=== PATIENT | male | born 1960 | race Caucasian/White ===

== ENCOUNTER 2018-07-20 10:27 | Emergency (ER) | payer MEDICAID ==
--- NOTE | 2018-07-20 11:01 | EDPHY ---
General Time Seen by Provider: 07/20/18 11:00 Narrative: CLINICAL IMPRESSION: Medication refill ASSESSMENT/PLAN: Patient is a 57-year-old male with a significant history of coronary artery disease, diabetes, hypertension, COPD and asthma recently relocated to [place] from [place] requesting his anti-platelet medication refill. Patient is afebrile, not toxic appearing and in no acute distress. His vital signs were reviewed and were within normal limits. He has no physical complaints in the emergency department. He has been unable to establish care with a primary care provider and cover marker since his relocation, he realized this morning that he only has 2 pills left of his prasugrel and became concerned as he does not want to miss a dose. Patient was given a referral for both primary care provider and Cardiology to establish care with, he understands the importance of doing so in a timely manner. We also discussed the importance of smoking cessation as he is still continuing to smoke. He was given a 30 day prescription for his prasugrel, he had no physical complaints to warrant additional workup in the emergency department today. Conservative return precautions discussed-patient will return for development of chest pain, shortness of breath, abdominal pain or for any other concerning symptom. Patient verbalizes understanding and he is in agreement with this plan. CHIEF COMPLAINT: Medication refill HPI: Patient is a 57-year-old male with a significant history of coronary artery disease, diabetes, hypertension, COPD and asthma recently relocated to [place] from [place] requesting anti-platelet medication refill. Patient reports this morning he realized he only had 2 pills left of his prasugrel and became concerned as he does not want to miss a dose. Patient has been in the area for the last several months, has not yet established care with either a primary care provider or Cardiology. Patient denies any physical complaints in the emergency department today, he specifically denies any chest pain, shortness of breath, headache, dizziness, weakness or abdominal pain. He is medically compliant with all of his medication, denies need for any additional medication refills today. PAST MEDICAL HISTORY: Coronary artery disease, diabetes mellitus, hypertension , COPD, asthma Family History: Not contributory Social History: Current everyday smoker, denies alcohol or illicit drug use ROS: A full 10 point review of systems was negative except for those mentioned in HPI. PHYSICAL EXAM: General Appearance: Alert, oriented, appropriate, cooperative, NAD, well hydrated, non-toxic appearing, VSS, no hypoxia. HENT: Normocephalic, atraumatic. External ears appear normal. Nares are clear , mucosa is pink. Oropharynx clear is no erythema or exudates, no tonsillar hypertrophy or asymmetry. Eyes: PERRLA, no acute vision change, nystagmus, swelling, discharge, pain or photosensitivity. Conjunctiva pink, no pallor or injection. Neck: Supple, nontender, no lymphadenopathy, no midline pain, FROM, no meningismus. Respiratory: There are no retractions, lungs are clear to auscultation. Cardiac: Regular rate and rhythm, no murmurs or gallops. Gastrointestinal: Abdomen is soft, nontender, bowel sounds normal, no masses/ hernia, no rigidity, guarding or focal peritoneal findings. Skin: Warm, dry, no rashes, no nodules on palpation. No lower extremity edema. MEDICAL DECISION MAKING: Patient was seen independently. Secondary supervising physician at time of evaluation was Dr. Locke, he did not evaluate this patient however we discussed case and plan of care. Diagnosis: Medication refill. New, requires workup Summary: See Assessment and Plan for summary of ED visit Clinical lab tests: Not applicable. Independent visualization of images, tracing, or specimens: Not applicable. Decision to obtain medical records or history from someone other than the patient: No Review / Summarize previous medical records: None available Discussed patient with another provider: Yes, Dr. Locke Patient Progress: Stable, discharged. - History Smoking Status: Never smoked - Objective Vital Signs: Initial Vital Signs Temperature (C) 36.6 C 07/20/18 10:34 Heart Rate 86 07/20/18 10:34 Respiratory Rate 18 07/20/18 10:34 Blood Pressure 98/74 L 07/20/18 10:34 O2 Sat (%) 95 07/20/18 10:34 O2 Delivery Mode Room Air Allergies/Adverse Reactions: No Known Allergies Allergy (Unverified 07/20/18 10:31) Home Medications: Medication Instructions Recorded Albuterol 07/20/18 Atenolol 07/20/18 Atorvastatin Calcium 07/20/18 Furosemide 07/20/18 Lisinopril 07/20/18 Metformin HCl 07/20/18 Prasugrel HCl 07/20/18 Prasugrel HCl 10 mg PO DAILY #30 tablet 07/20/18 QUEtiapine FUMARATE 07/20/18 hydrOXYzine HCL 07/20/18 Departure - Departure Disposition: Home, Routine, Self-Care Clinical Impression: Medication refill Condition: Good Instructions: Medicine Refill (ED) Additional Instructions: DISCHARGE INSTRUCTIONS FROM YOUR DOCTOR Thank you for visiting our emergency department today. Please keep in mind that discharge from the emergency department does not mean that there is nothing wrong - it simply means that we have not identified an emergency condition that requires further evaluation or treatment in the hospital. You have been provided to referrals, 1 for a primary care doctor as well as 1 for Cardiology. Please call today to schedule appointments to establish care. Please continue taking all of your other medications as prescribed. People present with illnesses and injuries in different ways, and it is always possible that we have missed something. You may always return for re-evaluation if symptoms worsen or if they are not improving or if you develop new/different symptoms. Again, thank you for choosing our emergency department. Referrals: Lorin Mondragon MD [Medical Doctor] - 1-2 days without fail Yonis Troy MD [Medical Doctor] - As per Instructions (Schedule an appointment to establish care) Prescriptions: Prasugrel HCl 10 mg PO DAILY #30 tablet
[2018-07-20 11:37] VITALS: BP 109/74
== END 2018-07-20 11:54 | disposition home or self-care (01) ==
DX: Z76.0 Encounter for issue of repeat prescription (principal); I25.10 Atherosclerotic heart disease of native coronary artery without angina pectoris; I10 Essential (primary) hypertension; E11.9 Type 2 diabetes mellitus without complications; J45.909 Unspecified asthma, uncomplicated